=== PATIENT | male | born 1955 | race Caucasian/White ===

== ENCOUNTER 2017-04-05 19:37 | Emergency (ER) | payer BC ==
[2017-04-05 19:50] VITALS: BMI 30.8
[2017-04-05] MEDS ORDERED: NIFEDIPINE CAP 10 MG ONE (19:52)
[2017-04-05] MEDS ORDERED: NIFEDIPINE CAP 10 MG PO ONE (19:55)
--- NOTE | 2017-04-05 20:11 | DR.GENAD ---
HPI - PCP Primary Care Physician: NFD - HPI Comment HPI Comment: DENIES FEVER. BP IS ELEVATED. PATIENT HAVE HISTORY OF HTN BUT IS NOT ON MEDICATION CURRENTLY. - Complaint/Symptoms Chief Complaint Doctors Comments: HIT LEFT LEG ON STEEL POLE 2 WEEKS AGO SUSTAINING A PUNCTURE WOUND. INCREASING PAIN LT LEG SINCE. IT IS SWOLLEN AND BONE IN LET LEG IS ALSO HURTING. Chief Complaint:: PT STATES" I STEPPED OFF A STEP ANF HIT MY LEG ON A STEEL POLE ABOUT 2 WEEKS AGO AND IT IS HURTING ME BAD". PT HAS REDNESS NOTED WITH ABRASION - Nurses notes reviewed Nurses Notes Review: Yes - Source History Provided: Patient - Mode of Arrival Mode of Arrival: Ambulatory - Timing Onset of Chief Complaint: 03/22/17 Came on: Gradually - Duration Duration: Constant Duration: Days - Severity Severity: Moderate PMH - PMH Past Medical History: Yes Past Medical History: Hypertension Past Surgical History: No - Family History History of Family Medical Conditions: No - Social History Does patient currently use any type of tobacco product: No Have you used tobacco products in the last 12 months: No Type of Tobacco Use: None Does any household member use tobacco: No Alcohol Use: None Do you use any recreational Drugs:: No Lives With: Family Lives Where: Home - infectious screening In the last 2 months have you had wt loss of >10#?: NO Have you had fever, night sweats or hemotysis?: No Have you traveled outside the country in the last 6 months?: No Isolation: Standard ROS - Review of Systems Constitutional: negative: Chills, Fever, Weakness, Fatigue Eyes: negative: See HPI, Discharge ENTM: negative: Ear Pain, Nose Discharge, Nose Congestion, Throat Pain Respiratoy: negative: Productive Cough, Non-Productive Cough, Short of Breath, Wheezing, Hemoptysis Cardiovascular: Edema (SWELLINF LEFT LEG.). negative: Chest Pain Gastrointestinal/Abdominal: No Symptoms Reported Genitourinary: No Symptoms Reported Neurological: No Symptoms Reported Musculoskeletal: Muscle Pain, Left, Leg (SWELLING AND TENDERNESS LT LEG.) Integumentary: Change in Color, Wound (PUNCTURE WOUND. ) Hematologic/Lymphatic: No Symptoms Reported Endocrine: No Symptoms Reported All Other Systems: Reviewed and Negative PE - Vital Signs Vitals: Temperature 98.3 F Pulse Rate [Left Brachial] 69 Pulse Rate 79 Respiratory Rate 18 Blood Pressure [Left Arm] 187/100 Blood Pressure 237/117 O2 Sat by Pulse Oximetry 96 - General Limitations: No Limitations General Appearance: Alert - Head Head Exam: Normal Inspection - Eyes Eye exam: Normal Appearance - ENT ENT Exam: Normal External Ear Exam External Ear Exam: Normal External Inspection TM/Canal Exam: Bilateral Normal Nose Exam: Normal Nose Exam Mouth Exam: Normal Inspection Throat Exam: Normal Inspection - Neck Neck Exam: Trachea Midline - Chest Chest Inspection: Symmetric Chest Wall Rise - Respiratory Respiratory Exam: Normal Lung Sounds Bilat Respiratory Exam: Bilateral Clear to Auscultation - Cardiovascular Cardiovascular Exam: Regular Rate, Normal Rhythm, Normal Heart Sounds, Other ( BP ELEVATED.) - Abdominal Exam Abdominal Exam: Normal Bowel Sounds, Soft. negative: Tenderness - Extremities Extremities Exam: Tenderness (SWELLING, REDNESS AND TENDERNESS LEFT LEG. PULSES INTACT.PUNCTURE WOUND PRESENT.) - Back Back Exam: Normal Inspection - Neurologic Neurological Exam: Alert, Oriented X3 - Psychiatric Psychiatric Exam: Normal Affect, Normal Mood - Skin Skin Exam: Normal Color MDM - Additional Information Additional Information Obtained From: Family - Differential Diagnosis Differential Diagnosis: CELLULITIS, PUNCTURE WOUND, DVT Course - Treatment Treatment: SEE ORDERS. - Education/Counseling Education/Counseling: Patient, Family, Education Educated On: Diagnosis ROR - Labs Reviewed Laboratory Results Reviewed?: Yes Result Diagrams: 04/05/17 20:04 04/05/17 20:04 Laboratory: WBC 16.9 X10^3/uL (3.6-10.0) H 04/05/17 20:04 RBC 5.36 X10^6/uL (4.7-6.0) 04/05/17 20:04 Hgb 15.8 g/dL (13.5-18.0) 04/05/17 20:04 Hct 46.5 % (42.0-54.0) 04/05/17 20:04 MCV 86.8 fL (80.0-100.0) 04/05/17 20:04 MCH 29.4 pg (27.0-34.0) 04/05/17 20:04 MCHC 33.9 g/dL (33.0-35.0) 04/05/17 20:04 RDW 13.5 % (11.6-16.5) 04/05/17 20:04 Plt Count 270 X10^3/uL (150.0-450.0) 04/05/17 20:04 MPV 8.6 fL (7.4-11.0) 04/05/17 20:04 Neut % 81.6 % (42.0-75.0) H 04/05/17 20:04 Lymph % 11.8 % (21.0-51.0) L 04/05/17 20:04 [place] % 5.5 % (0.0-13.0) 04/05/17 20:04 Eos % 0.9 % (0.9-2.9) 04/05/17 20:04 Baso % 0.2 % (0.2-1.0) 04/05/17 20:04 Neut # 13.8 x10^3/uL (2.2-4.8) H 04/05/17 20:04 Lymph # 2.0 X10^3/uL (1.3-2.9) 04/05/17 20:04 [place] # 0.9 x10^3/uL (0.3-0.8) H 04/05/17 20:04 Eos # 0.1 x10^3/uL (0.0-0.2) 04/05/17 20:04 Baso # 0.0 X10^3/uL (0.0-0.1) 04/05/17 20:04 Absolute Nucleated RBC 0.0 /100WBC 04/05/17 20:04 ESR 4 MM/HOUR (0-15) 04/05/17 20:04 D-Dimer 498 ng/mL (0-400) H* 04/05/17 20:04 Sodium 141 mmol/L (136-145) 04/05/17 20:04 Corrected Sodium TNP 04/05/17 20:04 Potassium 4.0 mmol/L (3.5-5.1) 04/05/17 20:04 Chloride 103 mmol/L (98-107) 04/05/17 20:04 Carbon Dioxide 31.0 mmol/L (21-32) 04/05/17 20:04 BUN 16 mg/dL (7-18) 04/05/17 20:04 Creatinine 1.12 mg/dL (0.70-1.30) 04/05/17 20:04 Est GFR (MDRD) Af Amer > 60 (>60) 04/05/17 20:04 Est GFR (MDRD) Non-Af > 60 (>60) 04/05/17 20:04 Glucose 106 mg/dL (65-99) H 04/05/17 20:04 Calcium 9.4 mg/dL (8.5-10.1) 04/05/17 20:04 Corrected Calcium TNP 04/05/17 20:04 Total Bilirubin 0.40 mg/dL (0.2-1.0) 04/05/17 20:04 AST 25 Units/L (15-37) 04/05/17 20:04 ALT 33 Units/L (12-78) 04/05/17 20:04 Alkaline Phosphatase 94 Units/L (46-116) 04/05/17 20:04 C-Reactive Protein 8.60 mg/L (0-3.0) H 04/05/17 20:04 Total Protein 7.5 g/dL (6.4-8.2) 04/05/17 20:04 Albumin 4.2 g/dL (3.4-5.0) 04/05/17 20:04 Globulin 3.3 g/dL (2.5-4.5) 04/05/17 20:04 Albumin/Globulin Ratio 1.3 Ratio (1.1-2.1) 04/05/17 20:04 - XRAY XRAY Interpreted by: Radiologist XRAY Findings: REPORT DISCUSS WITH PATIENT AND HIS . - Diagnosis Discharge Problem: Cellulitis of left leg, Puncture wound Hypertension Qualifiers: Hypertension type: essential hypertension Qualified Code(s): I10 - Essential ( primary) hypertension - Discharge Plan Disposition: 01 HOME, SELF-CARE Condition: Stable Prescriptions: Clindamycin HCl 300 mg PO Q6H #40 cap Clonidine HCl [CATAPRES 0.2 MG TAB *] 0.2 mg PO BID #60 tab Sulfamethoxazole-Trimethoprim [BACTRIM DS TAB 800/160 MG *] 1 tab PO BID #20 tab - Follow ups/Referrals Follow ups/Referrals: SNEHAL,None [Primary Care Provider] - 2 days SHAGGY VERDUZCO [STAFF PHYSICIAN] - 2 days - Instructions Instructions: Cellulitis, Adult, [id number], Hypertension, [id number] Additional Instructions: RETURN TO ED IF WORSE. BP CHECK DAILY AND CHART AND TAKE TO YOUR DOCTOR.
[2017-04-05 20:22] LABS: BASOPHILS % (AUTO) 0.2 % (0.2-1.0); EOSINOPHILS # (AUTO) 0.1 x10^3/uL (0.0-0.2); EOSINOPHILS % (AUTO) 0.9 % (0.9-2.9); HEMATOCRIT 46.5 % (42.0-54.0); HEMOGLOBIN 15.8 g/dL (13.5-18.0); LYMPHOCYTES % (AUTO) 11.8 % (21.0-51.0); MEAN CORPUSCULAR HEMOGLOBIN 29.4 pg (27.0-34.0); MEAN CORPUSCULAR HGB CONC 33.9 g/dL (33.0-35.0); MEAN CORPUSCULAR VOLUME 86.8 fL (80.0-100.0); MEAN PLATELET VOLUME 8.6 fL (7.4-11.0); MONOCYTES # (AUTO) 0.9 x10^3/uL (0.3-0.8); MONOCYTES % (AUTO) 5.5 % (0.0-13.0); NEUTROPHILS # (AUTO) 13.8 x10^3/uL (2.2-4.8); NEUTROPHILS % (AUTO) 81.6 % (42.0-75.0); PLATELET COUNT 270 X10^3/uL (150.0-450.0); RED BLOOD COUNT 5.36 X10^6/uL (4.7-6.0); RED CELL DISTRIBUTION WIDTH 13.5 % (11.6-16.5); WHITE BLOOD COUNT 16.9 X10^3/uL (3.6-10.0)
--- NOTE | 2017-04-05 20:25 | RAD ---
Two views of the left foreleg. Indication: Trauma with for leg pain. Conclusion: There is no acute fracture or malalignment involving the left foreleg. There is os ossifi c density which abuts the proximal medial fibula. The differential would include adherent heterotopic calcification from soft tissue injury. Although medullary continuity is not seen findings could repr esent a pedunculated osteochondroma. Reported By:
[2017-04-05 20:29] LABS: C-REACTIVE PROTEIN 8.6 mg/L (0-3.0)
[2017-04-05 20:33] LABS: ALANINE AMINOTRANSFERASE 33 Units/L (12-78); ALBUMIN 4.2 g/dL (3.4-5.0); ALKALINE PHOSPHATASE 94 Units/L (46-116); ASPARTATE AMINO TRANSFERASE 25 Units/L (15-37); BLOOD UREA NITROGEN 16 mg/dL (7-18); CALCIUM 9.4 mg/dL (8.5-10.1); CHLORIDE 103 mmol/L (98-107); CREATININE 1.12 mg/dL (0.70-1.30); SODIUM 141 mmol/L (136-145); TOTAL PROTEIN 7.5 g/dL (6.4-8.2); eGFR BLACK RACES > 60 (>60); eGFR NON BLACK RACES > 60 (>60)
[2017-04-05] MEDS ORDERED: CLEOCIN 600 MG IV PREMIX 600 MG/50 ML BAG IV ONE (20:49)
[2017-04-05] MEDS ORDERED: NS 100 ML IV + SPIKE MINIBAG* 100 ML IV ONE (20:56)
[2017-04-05] MEDS ORDERED: CLEOCIN VIAL 600 MG ONE (20:56)
--- NOTE | 2017-04-05 22:08 | VAS ---
Left lower extremity venous Doppler Indication: Left lower extremity swelling and pain. Technique: Grayscale with color and spectral Doppler imaging of the left lower extremity venous syste m was performed. Findings: The left common femoral vein demonstrates augmentation with compression and normal flow. Th e greater saphenous junction demonstrates normal color Doppler. The superficial femoral vein and popl iteal veins demonstrate compressibility with augmentation and normal color. Conclusion: No DVT seen within the left lower extremity venous system. Reported By:
[2017-04-05] MEDS ORDERED: BACTRIM DS TAB PO ONE ×2 (23:06→23:07)
[2017-04-05 23:11] VITALS: BP 187/100
== END 2017-04-05 23:11 | disposition home or self-care (01) ==
LOC: ER 19:49
DX: L03.116 Cellulitis of left lower limb (principal); S81.839A Puncture wound without foreign body, unspecified lower leg, initial encounter; I10 Essential (primary) hypertension; X58.XXXA Exposure to other specified factors, initial encounter; Y92.9 Unspecified place or not applicable
CPT/HCPCS: 36415; 73590; 80053; 85025; 85378; 85652; 86140; 87040; 93971; 96365; 96374; 99283; 99284; A4222; S0077